=== PATIENT | female | born 1990 | race Caucasian/White ===

== ENCOUNTER 2018-11-25 09:06 | Emergency (ER) | payer MEDICAID, OTHER ==
[2018-11-25] MEDS ORDERED: LORAZEPAM 0.5 MG TAB PO ONE ×2 (10:56→18:14)
[2018-11-25 10:57] LABS: BASOPHILS % (AUTO) 1 % (0-3); EOSINOPHILS % (AUTO) 2 % (0-9); HEMATOCRIT 39 % (35-47); HEMOGLOBIN 13.4 gm/dl (12.0-15.5); LYMPHOCYTES % (AUTO) 39.4 % (10-50); MEAN CORPUSCULAR HEMOGLOBIN 30.3 pg (27.0-32.0); MEAN CORPUSCULAR HGB CONC 33.9 gm/dl (32.0-36.0); MEAN CORPUSCULAR VOLUME 90 fL (81-99); MONOCYTES % (AUTO) 5.6 % (0-12); NEUTROPHILS % (AUTO) 51.9 % (37-80)
[2018-11-25] MEDS ORDERED: LORAZEPAM 0.5 MG TAB ONE ×2 (11:02→18:15)
[2018-11-25 11:12] LABS: ALBUMIN 4.3 gm/dl (3.4-5.0); BILIRUBIN,TOTAL 1.1 mg/dl (0.2-1.0); CALCIUM 8.7 mg/dl (8.5-10.1); CARBON DIOXIDE 27.7 mEq/L (21-32); CREATININE 0.85 mg/dl (0.60-1.00); POTASSIUM 3.7 mMol/L (3.5-5.1); THYROID STIMULATING HORMONE 1.589 uIU/ml (0.358-3.740); TOTAL PROTEIN 7.6 gm/dl (6.4-8.2)
[2018-11-25 11:16] LABS: ALCOHOL 0.008 gm/dl (0.000-0.08)
[2018-11-25 11:45] LABS: APPEARANCE,URINE Clear; BILIRUBIN,URINE NEGATIVE (NEGATIVE); COLOR,URINE Yellow; GLUCOSE, URINE (UA) NEGATIVE (NEGATIVE); KETONES,URINE NEGATIVE (NEGATIVE); LEUKOCYTE ESTERASE ,URINE TRACE (NEGATIVE); NITRATE,URINE NEGATIVE (NEGATIVE); OCCULT BLOOD,URINE TRACE INTACT (NEG-TRACE); PH,URINE 7.5; UROBILINOGEN,URINE 0.2 (0.2-1.0 EU)
[2018-11-25 11:52] LABS: AMPHETAMINES NEGATIVE (NEGATIVE); BACTERIA 1+ (< 1+); BARBITUATES NEGATIVE (NEGATIVE); BENZODIAZEPINES NEGATIVE (NEGATIVE); CANNABINOL(THC) POSITIVE (NEGATIVE); COCAINE(COC) NEGATIVE (NEGATIVE); CRYSTALS NEGATIVE (0-3 AVE/HPF); METHADONE NEGATIVE (NEGATIVE); METHAMPHETAMINES NEGATIVE (NEGATIVE); OPIATES(OPI) NEGATIVE (NEGATIVE); OXYCODONE(OXY) NEGATIVE (NEGATIVE); PROPOXYPHENE(PPX) NEGATIVE (NEGATIVE); RBC,URINE 0-2 (0-3AV/HPF); TRICYCLIC ANTIDEPRESSANTS NEGATIVE (NEGATIVE)
[2018-11-25 19:55] VITALS: BP 121/70; PULSE 56; RESP 16; O2SAT 97
[2018-11-25 20:18] VITALS: TEMP 98.2
== END 2018-11-25 20:38 | disposition short-term general hospital (02) | DRG 880 ==
LOC: ED 09:06
DX: R45.851 Suicidal ideations (principal); F43.10 Post-traumatic stress disorder, unspecified; F41.9 Anxiety disorder, unspecified; F32.9 Major depressive disorder, single episode, unspecified; R63.0 Anorexia
CPT/HCPCS: 36415; 80053; 80305; 80307; 81001; 84443; 84703; 85025; 99283; 99285; A9270-GY

== ENCOUNTER 2018-12-26 11:58 | Emergency (ER) | payer MEDICAID ==
[2018-12-26] MEDS ORDERED: LORAZEPAM 0.5 MG TAB PO ONE ×2 (12:08→13:26)
[2018-12-26] MEDS ORDERED: LORAZEPAM 0.5 MG TAB ONE ×2 (12:09→13:03)
[2018-12-26 12:43] VITALS: O2SAT 100
[2018-12-26 13:31] VITALS: BP 124/55; PULSE 97; RESP 28
[2018-12-26 13:32] VITALS: TEMP 97.4
== END 2018-12-26 14:00 | disposition home or self-care (01) | DRG 880 ==
LOC: ED 11:58
DX: F41.0 Panic disorder [episodic paroxysmal anxiety] (principal); M54.2 Cervicalgia; W03.XXXA Other fall on same level due to collision with another person, initial encounter
CPT/HCPCS: 99282; A9270-GY

== ENCOUNTER 2019-01-29 11:34 | Emergency (ER) | payer MEDICAID, OTHER ==
[2019-01-29 11:34] VITALS: O2SAT 100
[2019-01-29 11:45] VITALS: BP 123/87; PULSE 76; RESP 16; TEMP 97.1
[2019-01-29 12:30] LABS: APPEARANCE,URINE Clear; BILIRUBIN,URINE NEGATIVE (NEGATIVE); COLOR,URINE Yellow; GLUCOSE, URINE (UA) NEGATIVE (NEGATIVE); KETONES,URINE NEGATIVE (NEGATIVE); LEUKOCYTE ESTERASE ,URINE NEGATIVE (NEGATIVE); NITRATE,URINE NEGATIVE (NEGATIVE); OCCULT BLOOD,URINE NEGATIVE (NEG-TRACE); PH,URINE 7.5; UROBILINOGEN,URINE 0.2 (0.2-1.0 EU)
[2019-01-29 12:40] LABS: BACTERIA NEGATIVE (< 1+); CRYSTALS NEGATIVE (0-3 AVE/HPF); EPITHELIAL CELLS 0-1 (SQUAMOUS); RBC,URINE NEG (0-3AV/HPF); WBC,URINE NEG (0-5AV/HPF)
[2019-01-29 12:41] LABS: AMPHETAMINES NEGATIVE (NEGATIVE); BARBITUATES NEGATIVE (NEGATIVE); BENZODIAZEPINES NEGATIVE (NEGATIVE); CANNABINOL(THC) POSITIVE (NEGATIVE); COCAINE(COC) NEGATIVE (NEGATIVE); METHADONE NEGATIVE (NEGATIVE); METHAMPHETAMINES NEGATIVE (NEGATIVE); OPIATES(OPI) NEGATIVE (NEGATIVE); OXYCODONE(OXY) NEGATIVE (NEGATIVE); PROPOXYPHENE(PPX) NEGATIVE (NEGATIVE); TRICYCLIC ANTIDEPRESSANTS NEGATIVE (NEGATIVE)
[2019-01-29 13:35] LABS: HEMATOCRIT 43 % (35-47); HEMOGLOBIN 14.3 gm/dl (12.0-15.5); MEAN CORPUSCULAR HEMOGLOBIN 30.9 pg (27.0-32.0); MEAN CORPUSCULAR HGB CONC 33.5 gm/dl (32.0-36.0); MEAN CORPUSCULAR VOLUME 92 fL (81-99)
[2019-01-29 13:48] LABS: BAND NEUTROPHILS % (MANUAL) 16 %; EOSINOPHILS % (MANUAL) 0 % (0-9); LYMPHOCYTES % (MANUAL) 17 % (10-50); MONOCYTES % (MANUAL) 3 % (0-12); NEUTROPHILS % (MANUAL) 64 % (37-80)
[2019-01-29 13:49] LABS: BASOPHILS % (MANUAL) 0 % (0-3); NORMAL RBCS PRESENT
[2019-01-29 13:54] LABS: ACETAMINOPHEN < 2 ug/ml (10-30); ALBUMIN 4.6 gm/dl (3.4-5.0); ALCOHOL < 0.003 gm/dl (0.000-0.08); ALKALINE PHOSPHATASE 48 IU/L (46-116); ALT 26 IU/L (14-63); AST 38 IU/L (15-37); BILIRUBIN,TOTAL 0.7 mg/dl (0.2-1.0); BLOOD UREA NITROGEN 10 mg/dl (7-18); CALCIUM 8.9 mg/dl (8.5-10.1); CARBON DIOXIDE 28.8 mEq/L (21-32); CHLORIDE 102 mMol/L (98-107); GLUCOSE 97 mg/dl (74-106); POTASSIUM 4.5 mMol/L (3.5-5.1); SALICYLATE < 2.8 mg/dl (2.8-30.0); SODIUM 138 mMol/L (136-145); THYROID STIMULATING HORMONE 1.875 uIU/ml (0.358-3.740); TOTAL PROTEIN 8.4 gm/dl (6.4-8.2)
[2019-01-29] MEDS ORDERED: LORAZEPAM 0.5 MG TAB PO ONE (15:47)
[2019-01-29] MEDS ORDERED: LORAZEPAM 0.5 MG TAB ONE (15:48)
== END 2019-01-29 17:50 | disposition short-term general hospital (02) | DRG 914 ==
LOC: ED 11:34
DX: T14.91XA Suicide attempt, initial encounter (principal); X83.8XXA Intentional self-harm by other specified means, initial encounter; F41.0 Panic disorder [episodic paroxysmal anxiety]
CPT/HCPCS: 36415; 80053; 80305; 80307; 81001; 84443; 84703; 85007; 85027; 99283; 99285; A9270-GY

== ENCOUNTER 2019-03-09 12:46 | Emergency (ER) | payer OTHER ==
[2019-03-09 13:34] VITALS: BP 113/79; PULSE 75; RESP 16; TEMP 97.1; O2SAT 99
== END 2019-03-09 13:45 | disposition home or self-care (01) | DRG 153 ==
LOC: ED 12:46
DX: J06.9 Acute upper respiratory infection, unspecified (principal)
CPT/HCPCS: 99282